=== PATIENT | male | born 1950 | race Caucasian/White ===

== ENCOUNTER 2024-11-22 13:09 | Inpatient (IN) | payer MEDICARE, OTHER, SELFPAY ==
[2024-11-22] VITALS (10 sets, daily range): BP systolic 94–149; BP diastolic 50–76
[2024-11-22 10:16] LABS: Glucose - Point of Care 126 mg/dl (70-99)
[2024-11-22 10:40] LABS: % Basophils 0.2 % (0-2); % Eosinophils 0.6 % (0-6); % Immature Granulocytes 0.6 % (0-0.5); % Lymphocytes 8.7 % (20.5-51.1); % Monocytes 8.9 % (1.7-9.3); ALT (SGPT) 29 U/L (0-50); AST (SGOT) 31 U/L (17-59); Absolute Lymphocytes 0.4 10^3/uL (1.2-3.4); Absolute Monocytes 0.4 10^3/uL (0.1-0.6); Albumin 4.3 g/dl (3.5-5.0); Alkaline Phosphatase 76 U/L (38-126); Blood Urea Nitrogen 24 mg/dl (9-20); Calcium 8.8 mg/dl (8.4-10.2); Carbon Dioxide 23 mmol/L (22-30); Chloride 99 mmol/L (98-107); Glucose 135 mg/dl (70-99); Hematocrit 39.5 % (39.0-52.0); Hemoglobin 13.5 g/dL (13.0-18.0); Mean Corp Hgb Conc. 34.2 g/dL (33.0-37.0); Mean Corpuscular Hgb 29.7 pg (27.0-31.0); Mean Corpuscular Volume 86.8 fL (80.0-94.0); Mean Platelet Volume 10.4 fL (7.4-10.4); Nucleated Red Blood Cells % 0 % (-); Platelet Count 119 10^3/uL (130-400); Potassium 3.8 mmol/L (3.5-5.1); Red Blood Cell Count 4.55 10^6/uL (4.70-6.10); Red Cell Dist. Width 12.8 % (11.5-14.5); Sodium 135 mmol/L (135-145); Total Bilirubin 0.5 mg/dl (0.2-1.3); Total Protein 7.2 g/dl (6.3-8.2); White Blood Cell Count 4.9 10^3/uL (4.8-10.8); eGFR 36.79
[2024-11-22 10:41] LABS: Lactic Acid 1.6 mmol/L (0.7-2.0)
[2024-11-22 10:46] LABS: COVID-19 Antigen Negative (Negative)
--- NOTE | 2024-11-22 10:48 | ED.GENMED ---
History of Present Illness
General
Chief Complaint: Change in Mental Status
Source: patient and family
Time Seen by Provider: 11/22/24 10:36
History of Present Illness
History of Present Illness:
This patient is a 74-year-old male presents emergency department accompanied by his and [id number]. They report that the patient was perfectly fine up until last night. In fact, he drove to dinner, ate dinner as usual, and was acting his
normal self. They do note that he had a cough yesterday but otherwise no symptoms. However, throughout the night, his reports that he seemed confused and was shuffling around and up all night. She describes him as walking hunched over, and
restless. Today, he was doing strange things and did not seem to understand what they were saying to him. For example, he urinated in the trash can in the kitchen and did not seem to realize that this was inappropriate. Just before medics arrival
patient did develop nausea and diaphoresis which is now resolved. He did complain to his of left-sided chest comfort earlier this morning now resolved.
Of note, patient does not have a history of a shunt. He does have a history of brain tumors, some of which have been surgically removed, others for which she has received radiation. She states that there is one present on the left side but it is
decreasing in size. He is due for his 3-month follow-up MRI early in November.
Past History
Past History
ED Past Medical History: HTN, Hypercholesterolemia, NIDDM and Other (Brain tumors)
ED Past Surgical History: Orthopedic and Other (Brain tumor removal)
Social History
Tobacco: Non-smoker
Alcohol: None
Drug: None
Personal:
Living: with family
Phy Exam
Physical Exam
Physical Exam:
GENERAL: Alert , in no apparent distress
EYE: pupils equal and reactive, no photophobia, no nystagmus, EOMI
NECK: Supple, no significant adenopathy, [place] no easily.
ENT: o/p clr, mmm.
CARDIAC: Regular rate and rhythm .
LUNGS: Clear breath sounds bilaterally, no acute respiratory distress, no wheezes/rales/rhonchi
ABDOMEN: Soft, without focal tenderness, no r/g, no cvat
NEUROLOGICAL: Alert and oriented to person and place but not time, no focal neuro deficits, motor 5 out of 5, sensory intact, [id number] normal, cranial nerves II through XII intact
SKIN: Warm and dry, skin intact.
MUSCULOSKELETAL: No edema, well perfused.
PSYCH: Normal and appropriate interaction although somewhat forgetful.
Course
Orders/Labs/Results
Orders:
Orders
11/22/24 10:07
Electrocardiogram (*1) Urgent
Reason for Study: Fatigue / Weakness
CT Head W/o Iv Contrast Urgent
Comment:
Reason For Exam: confusion
EKG- Treatment ONCE
CR Chest - 2 Views Urgent
Comment:
Reason For Exam: cough
11/22/24 10:14
COVID-19 Antigen Urgent
Source: Nasal Swab
Complete Blood Count/With Diff Urgent
Comprehensive Metabolic Panel Urgent
Lactic Acid Urgent
Influenza A+B Rapid Molecular Urgent
LOKESH Source: Nasal Swab
Specimen Description:
11/22/24 11:07
Troponin I Urgent
11/22/24 11:18
Oseltamivir Phosphate [Tamiflu] 75 mg PO NOW STA
11/22/24 11:56
0.9% Sodium Chloride 500 ml [Nss] 500 ml IV BOLUS
11/22/24 12:09
Azithromycin 500 mg/250 ml [Zithromax Infusion] 500 mg in 250 ml IV NOW
CefTRIAXone [Rocephin] 1,000 mg IV NOW STA
Vancomycin [Vancocin] 2,000 mg 0.9% Sodium Chloride 500 ml [Nss] 500 ml IV NOW
11/22/24 12:29
Urinalysis Urgent
Date Specimen was Collected: 11/22/24
Time Specimen was Collected: 12:28
Urine Microscopic Urgent
Date Specimen was Collected: 11/22/24
Time Specimen was Collected: 12:28
11/22/24 12:41
Admit/Transfer Patient As Directed
Co-Sign Provider:
Level of Care: Inpatient admission
Assign to:: Telemetry
Physician / Group: susan nelson
Diagnosis: confusion 2/2 influenza A, yen on ckd
Reason for Telemetry: Arrhythmia
Date to Stop Telemetry: 11/25/24
Time to Stop Telemetry: 11:00
Reason for Hospitalization: confusion 2/2 influenza A, yen on ckd
Expected length of stay greater than two midnights?: Yes
ELOS- Estimated Length of Stay in days: 4
I certify the patient meets the requirements for IP care: Yes
11/22/24 12:42
Code Status As Directed
Resuscitation Status: Do not resuscitate
Reached after discussion with pt or family/Healthcare POA: Yes
Based on pt advanced directive or healthcare POA form: Yes
Decision communicated with: per pt with angelica
DNR Bracelet Application ONCE
11/22/24 12:47
PRN Pain Medication Management As Directed
May give lesser potent ordered pain med per pt: Yes
preference::
Protocol:: Medication orders for pain may be administered in a
manner that supports deferring to patient preference
when the pt is:
- Requesting an ordered lesser potent pain medication.
Least to most potent pain medications are defined
as: acetaminophen < NSAID < tramadol < opioids
(morphine, oxycodone, hydromorphone).
- Requesting a lesser dose of the same medication IF
ORDERED.
- Requesting a less intrusive route of administration
if both routes are prescribed by the provider (PO <
IV).
11/22/24 12:48
Acetaminophen [Tylenol] 1,000 mg PO NOW STA
11/25/24 11:00
DC Protocol for Telemetry ONCE
Abnormal Lab Results
11/22/24 11/22/24 11/22/24
10:13 10:14 12:29
RBC 4.55 L 10^6/uL
(4.70-6.10)
Plt Count 119 L 10^3/uL
(130-400)
Absolute Lymphs (auto) 0.4 L 10^3/uL
(1.2-3.4)
Immature Gran % 0.6 H %
(0-0.5)
Neutrophils % 81.0 H %
(42.2-75.2)
Lymphocytes % 8.7 L %
(20.5-51.1)
BUN 24 H mg/dl
(9-20)
Creatinine 1.9 H mg/dL
(0.7-1.3)
Glucose 135 H mg/dl
(70-99)
Urine Ketones 1+ A
(Negative)
Urine Occult Blood 1+ A
(Negative)
Urine RBC 3-6 A /HPF
(0-2)
POC Glucose 126 H mg/dl
(70-99)
11/22/24 10:14
11/22/24 10:14
Vital Signs
Initial and Last Documented VS:
Initial Vital Signs
Temp Pulse Resp BP Pulse Ox
98.6 F 91 19 94/60 95
11/22/24 10:00 11/22/24 10:00 11/22/24 10:00 11/22/24 10:00 11/22/24 10:00
Last Documented Vital Signs
Temp Pulse Resp BP Pulse Ox
101.9 F H 89 25 135/69 91
11/22/24 12:41 11/22/24 12:15 11/22/24 11:00 11/22/24 11:00 11/22/24 11:00
*Critical Care Note
Total Time (30-74mins, 75-104mins- exclusive of procedures): Not Applicable
Update Note
Update Note:
Patient presents to the Emergency Department with mental status change
Number and Complexity of Problems Addressed at the Encounter
� Chronic conditions affecting care:hx brain tumors
� Acute Exacerbation and/or Progression of Chronic Illness:
� Differential Diagnosis includes: But not limited to intracranial mass, intracranial bleed, meningitis/encephalitis, sepsis, etc. etc.
Amount and/or Complexity of Data to be Reviewed and Analyzed
� I performed an independent evaluation of and my interpretation is:
EKG:read by me, nsr, no specific acute ischemic changes noted
CT:1). No acute intracranial abnormalities.
2).There is moderate diffuse cortical atrophy with a 4 cm focal area of volume loss in the left occipital lobe consistent subjacent to left occipital craniotomy and consistent with prior surgical intervention.
Xrays: Read by me suspect left lower lobe infiltrate
Laboratory Studies: Influenza A positive, nl wbc with sl l shift, YEN
Other:
� Review of other/old records reveals: Discharge summary from April 2021 reviewed patient admitted with lumbar radiculopathy
� Clinical information was obtained by an independent historian: and [id number] who are at bedside
� Prescriptions/Medications Considered but not given:
� Further testing considered but not performed:
Risk of Complications and/or Morbidity or Mortality of Patient Management
� Social determinants of health affecting care:
� Discussion with other providers (PCP, Hospitalists, Consultants, etc):
� Escalation of care including admission/observation vs risk of discharge considered: 12:12 PM patient and family updated, findings represent influenza and suspected left lower pneumonia. UA is pending. Lactic acid, blood
pressure, heart rate stable. [place] text sent to hospitalist for admission, antibiotics and Tamiflu ordered.
ED Attending Note
-
Portions of this chart may have been created with voice recognition software.� Occasional wrong word or��sound alike� substitutions may have occurred due to the inherent limitations of voice recognition software.
Discharge Plan
Departure
Patient Disposition: Admit
Date of Disposition: 11/22/24
Time of Disposition: 12:41
Admit to: Telemetry
Presentation/result/management discussed w/ accepting MD/DO: Hospitalist
Discharge Problem:
Influenza A, Acute alteration in mental status
Interventions
Interventions:
*Risk Screen - Suicide Last Done: 11/22/24 11:09
*General Assessment Last Done: 11/22/24 11:06
*Neglect/Abuse Screening Last Done: 11/22/24 11:06
*ED COVID-19 Vaccine History Last Done: 11/22/24 11:06
ED- Neurological Assessment Last Done: 11/22/24 11:11
ED Swallowing Screen Last Done: 11/22/24 11:45
[2024-11-22] MEDS: TAMIFLU 75 MG PO (11:37)
[2024-11-22 11:51] LABS: Troponin I 0.013 ng/ml
[2024-11-22] MEDS: NSS 500 IV (11:59)
--- NOTE | 2024-11-22 12:20 | HPS.HSE ---
Family Physician
-
Family Physician: Car Mendez
Chief Complaint
-
Confusion, cough
History of Present Illness
74-year-old male in the ER with his and [id number]. They report patient was his normal self yesterday however they did notice a cough. Throughout the night his states he seemed to be confused with moving around and up all night long
hunched over and restless. She reports he urinated in the trash can in the kitchen this a.m. which is not something he would normally do. Before EMS arrived today he developed nausea with diaphoresis and right-sided chest discomfort which is
resolved. Patient reports right-sided chest pain secondary to cough. He also has nasal congestion on exam with some confusion could not recall the year knows he is at [facility] does recognize his . He has no other neurological deficits
except a chronic left hand tremor and right lower jaw tremor. 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 1 brain tumor present on the
left side reportedly decreasing in size. He is due for MRI in November., HTN, HLD, DM2,Prostate cancer with radiation therapy> 20 years ago, neuropathy bilateral legs
Medical History
Past Medical History
Past Medical History: Reports Other
Additional Past Medical History:
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
1 residual left-sided brain tumor currently present is being monitored with MRI through Dr. Vincenzo Garcia [facility]
HTN
HLD
DM2
Prostate cancer with radiation therapy> 20 years ago
neuropathy bilateral legs
Obesity
Past Surgical History: Reports Other
Additional Past Surgical History:
Hemangioblastoma with surgical resection multiple tumors 2014
Cataract extraction
Lumbar discectomy
Social History
Tobacco: Former Smoker ( reports many years ago)
Alcohol: None
Drug: None
Personal:
Living: With Family ( Mamadou)
Employment: Retired
Family History
Family History: Other (Mother history of colon cancer age 66 father age 90 old age 1 brother age 61 PR)
Allergies / Home Medications
Allergies reflects when Allergies were last updated in [facility].
Home Medications with original date entered in [facility]
Allergy/Medication List:
Allergies
Allergy/AdvReac Type Severity Reaction Status Date / Time
No Known Allergies Allergy Verified 11/22/24 10:07
Home Medications
omeprazole 40 mg capsule,delayed release 40 mg PO DAILY Gastrointestinal issue 05/10/21
tamsulosin 0.4 mg capsule 1 tab PO DAILY 07/08/21
metformin 500 mg tablet,extended release 24 hr 1,000 mg PO DAILY 11/22/24
rosuvastatin 5 mg tablet (Crestor) 5 mg PO DAILY 11/22/24
valsartan 320 mg-hydrochlorothiazide 12.5 mg tablet 1 tab PO DAILY 11/22/24
Review of Systems
-
History Source: Patient and Family (Mamadou )
A 12 point ROS was completed and negative except as noted: Yes
Constitutional: Reports Fever and Fatigue; Denies Chills
EENT: Reports Other (Nasal congestion); Denies Sore Throat
Respiratory: Reports Cough; Denies Trouble Breathing
Cardiac: Denies Chest Pain, Diaphoresis, Palpitations or Syncope
Abdomen/GI: Denies Abdominal Pain, Nausea, Vomiting, Diarrhea or Constipated
: Denies Dysuria, Frequency, Flank Pain, Incontinence or Difficulty Voiding
Musculoskeletal: Denies Joint Pain or Edema
Skin: Denies Itching or Rash
Neurological: Reports Weakness (Generalized); Denies Dizzy or Headache
Endocrine: Reports No Symptoms
Hematologic/Lymphatic: Reports No Symptoms
Psych: Reports Calm
Physical Exam
Vital Signs
Vital Signs
Temp Pulse Resp BP Pulse Ox
99.9 F 89 25 135/69 91
11/22/24 11:10 11/22/24 12:15 11/22/24 11:00 11/22/24 11:00 11/22/24 11:00
Physical Exam
General: Comfortable, Conversant, Fever and Obese; No Chills
HEENT: NormoCephalic, Anicteric, Moist mucous membranes, PERRLA and Other (Chronic lower jaw tremors)
Respiratory: Clear; No Wheezes, Rales or Rhonchi
Cardiac: S1/S2 and Regular Rhythm; No Murmur, Rub, Gallop or Peripheral Edema
Breast: Deferred by me
GI: Soft, Non Tender, Non Distended and Normal Bowel Sounds
Rectal: Deferred by Provider
Genito-urinary: Deferred by me
Musculoskeletal: No Clubbing, No Cyanosis and No Edema
Skin: Warm and Dry; No Rash
Neuro: Awake, Alert, Oriented (To name, place is confused to year), No Motor Deficits, Cranial Nerves Intact, Tremors (Chronic to left hand and lower jaw) and Other ([place] BAND); No Slurred Speech or Facial Droop
Psych: Calm
Laboratory Results
-
11/22/24 10:14
11/22/24 10:14
Laboratory Results
Lactic Acid 1.6 mmol/L (0.7-2.0) 11/22/24 10:14
Total Bilirubin 0.5 mg/dl (0.2-1.3) 11/22/24 10:14
AST 31 U/L (17-59) 11/22/24 10:14
ALT 29 U/L (0-50) 11/22/24 10:14
Alkaline Phosphatase 76 U/L (38-126) 11/22/24 10:14
Troponin I 0.013 ng/ml 11/22/24 11:07
Impression/Plan
-
Impression/Plan:
Admit to telemetry
#Acute hypoxic respiratory insufficiency secondary to INFLUENZA A positive
# Acute confusion secondary to fever/influenza A
Temp 99.9 F, HR 89, 135/69
101.8F temp
91% RA
-IV NSS
-Continue Tamiflu 30 mg twice daily x 5 days reduced dose secondary CKD 3
-Tylenol as needed fever
CXR: Left lower lobe PNA
CT head:
1. No acute intracranial abnormalities.
2.There is moderate diffuse cortical atrophy with a 4 cm focal area of volume loss in the left occipital lobe consistent subjacent to left occipital craniotomy and consistent
with prior surgical intervention.
#EYN on CKD 3B
1.9�prior baseline 1.5
#Hemangioblastoma Dx 2014
#Surgical resection multiple tumors with plate placed
#Radiation 2014 and now last April 2024 still with 1 left-sided brain tumor that is being monitored with MRIs by Dr. Vincenzo Garcia at [facility]
#DM 2
-Hold metformin
-Accu-Cheks with SSI low
#Neuropathy legs
-Continue gabapentin 600 mg 3 times daily hold for sedation
#GERD
-Continue omeprazole daily
#BPH
#Prostate cancer with radiation therapy> 20 years ago
-Continue Flomax daily
#Chronic benign tremors to left arm and lower jaw
#HLD
-Continue statin
DVT prophylaxis
Subcu heparin
DNR per patient and Mamadou at bedside
[2024-11-22] MEDS: ROCEPHIN 1000 MG IV (12:21)
[2024-11-22 12:43] LABS: Urine Albumin Trace (Neg - Trace); Urine Bilirubin Negative (Negative); Urine Character Clear (Clear); Urine Color Yellow; Urine Glucose Negative (Negative); Urine Ketone 1+ (Negative); Urine Leukocyte Negative (Negative); Urine Nitrite Negative (Negative); Urine Occult Blood 1+ (Negative); Urine Urobilinogen Negative (Neg - 1+)
[2024-11-22 12:53] LABS: Urine Mucus Many; Urine Squamous Cell 0-2 /LPF (Few)
[2024-11-22 12:54] LABS: Urine Amorphous Seen
[2024-11-22 12:56] LABS: Urine White Cell 0-2 /HPF (0-5)
--- NOTE | 2024-11-22 13:07 | W.PN.UPDATE ---
Update Note
Progress Note Update
This is an addendum to the H&P written by Melany Carbone on 11/22/2024.� Patient seen and examined independently with PROCESSING SUPERVISOR.
74-year-old male past medical history of hemangioblastoma�status post occipital craniotomy/radiation with titanium plate, hypertension, hypercholesteremia, diabetes, CKD, presenting with altered mental status.� Cough since yesterday and confusion
all night and acting strange such as urinating in the trash.� Also nausea and diaphoresis, left-sided chest discomfort with cough now resolved.
Labs show creatinine of 1.9 with baseline around 1.5.� Other labs unremarkable.� CT head shows no acute intracranial normalities.� Moderate diffuse cortical atrophy with 4 similar focal area of volume loss in left supra lobe adjacent occipital
craniotomy.
Chest x-ray shows left lower lobe infiltrate although report pending.� Patient positive for influenza A.
Patient given Tamiflu and IV fluids, IV antibiotics.� Continue Tamiflu, hold further antibiotics.� No focal neurological neurological deficits to warrant MRI brain at this time is already scheduled for early November.
[2024-11-22] MEDS: TYLENOL 1000 MG PO (13:08)
--- NOTE | 2024-11-22 17:08 | PTCARENOTE ---
Received pt from ED, pt ambulated to bed from stretcher with minimal assistance and no assistive devices, pt AAOx2 (confused to time), bed alarm in place, NSR on tele, resting comfortabloy in bed with at bedside and call samson within reach.
[2024-11-22 17:18] LABS: Glucose - Point of Care 97 mg/dl (70-99)
--- NOTE | 2024-11-22 18:33 | VATNOTE ---
Attempts to restart PHS IV unsuccessful, another VAT nurse to attempt.
[2024-11-22] MEDS: HEPARIN 5000 UNITS SC (20:13)
[2024-11-22] MEDS: NSS 1000 IV (20:13)
[2024-11-22] MEDS: MUCINEX 600 MG PO (20:13)
[2024-11-22 21:52] LABS: Glucose - Point of Care 93 mg/dl (70-99)
[2024-11-22] MEDS: TAMIFLU 30 MG PO (21:54)
[2024-11-23 02:59] LABS: Glucose - Point of Care 93 mg/dl (70-99)
[2024-11-23 03:18] VITALS: BP 124/59
[2024-11-23 05:40] VITALS: BMI 30.6
[2024-11-23 07:15] VITALS: BP 128/70
[2024-11-23 07:15] LABS: Glucose - Point of Care 75 mg/dl (70-99)
[2024-11-23] MEDS: NSS 1000 IV (07:38)
[2024-11-23] MEDS: MUCINEX 600 MG PO (07:39)
[2024-11-23] MEDS: TAMIFLU 30 MG PO (07:39)
[2024-11-23] MEDS: HEPARIN 5000 UNITS SC (07:39)
[2024-11-23] MEDS: CRESTOR 5 MG PO (07:39)
[2024-11-23] MEDS: FLOMAX 0.4 MG PO (07:39)
[2024-11-23] MEDS: PROTONIX 40 MG PO (07:39)
[2024-11-23 07:55] LABS: % Eosinophils 1.3 % (0-6); % Immature Granulocytes 0.3 % (0-0.5); % Lymphocytes 23.3 % (20.5-51.1); % Monocytes 11.9 % (1.7-9.3); % Neutrophils 63.2 % (42.2-75.2); Absolute Eosinophils 0.1 10^3/uL (0-0.7); Absolute Lymphocytes 0.9 10^3/uL (1.2-3.4); Absolute Monocytes 0.5 10^3/uL (0.1-0.6); Absolute Neutrophils 2.4 10^3/uL (1.4-6.5); Hematocrit 42.8 % (39.0-52.0); Hemoglobin 14.2 g/dL (13.0-18.0); Mean Corp Hgb Conc. 33.2 g/dL (33.0-37.0); Mean Corpuscular Volume 87.5 fL (80.0-94.0); Mean Platelet Volume 10.7 fL (7.4-10.4); Nucleated Red Blood Cells % 0 % (-); Platelet Count 121 10^3/uL (130-400); Red Blood Cell Count 4.89 10^6/uL (4.70-6.10); Red Cell Dist. Width 13.1 % (11.5-14.5); White Blood Cell Count 3.8 10^3/uL (4.8-10.8)
[2024-11-23 08:37] LABS: ALT (SGPT) 35 U/L (0-50); AST (SGOT) 45 U/L (17-59); Albumin 4.2 g/dl (3.5-5.0); Alkaline Phosphatase 73 U/L (38-126); Blood Urea Nitrogen 23 mg/dl (9-20); Calcium 8.9 mg/dl (8.4-10.2); Carbon Dioxide 25 mmol/L (22-30); Chloride 100 mmol/L (98-107); Estimated Creatinine Clearance 36 ml/min; Glucose 95 mg/dl (70-99); Potassium 3.9 mmol/L (3.5-5.1); Sodium 136 mmol/L (135-145); Total Bilirubin 0.4 mg/dl (0.2-1.3); Total Protein 7.1 g/dl (6.3-8.2); eGFR 39.25
[2024-11-23 08:54] LABS: Glycohemoglobin (HgbA1c) 6.6 % (4.0-5.6)
[2024-11-23 11:15] VITALS: BP 133/80
--- NOTE | 2024-11-23 11:28 | W.PN.HOSP.TC ---
Today's Communication/Plan
-
DC home
More than 30 minutes spent in discharge including
Final examination of the patient
Summarizing hospital stay
Instructions for continuing care to all relevant caregivers
Preparation of discharge records, prescriptions, and referral forms
Total time spent (in minutes): 33mins
Assessment / Plan
Assessment / Plan
Toxic encephalopathy secondary to influenza A. Now resolved
Influenza A
-Tamiflu x 5 days
Hypertension
-Normotensive while in the hospital. Home valsartan hydrochlorothiazide held.
-Will continue to hold recommend blood pressure log twice a day, if greater than 140 can resume
-Additionally, should follow-up with nephrology and PCP for repeat renal function especially as on valsartan hydrochlorothiazide in the setting of CKD stage IIIb
-- As creatinine clearance is not less than 30 can still continue valsartan hydrochlorothiazide at this time
--- Additionally valsartan is renal protective in the setting of diabetes, UA with trace albumin
CKD stage IIIb
-Monitor urinary output
-Avoid nephrotoxins hypotension
-Follow-up with nephrology as outpatient
-Repeat BMP within 1 week
Type 2 diabetes, controlled
-Continue metformin
-If renal function continues to worsen may need to change agents in the near future.
-PCP should follow this.
Anticipated Discharge: Today
Subjective/Interval History
-
Date of Service: November 23, 2024
Seen and examined. Feeling much better. No evidence of confusion. Knows where he is who he is able to tell me exactly what happened after discussing with his last night.
Objective Data
-
Labs:
Laboratory Results
11/23/24
07:38
WBC 3.8 L
Hgb 14.2
Hct 42.8
Plt Count 121 L
Sodium 136
Potassium 3.9
Chloride 100
Carbon Dioxide 25
BUN 23 H
Creatinine 1.8 H
Glucose 95
Calcium 8.9
Total Bilirubin 0.4
AST 45
ALT 35
Alkaline Phosphatase 73
Vital Signs:
Vital Signs
Temp Pulse Resp BP Pulse Ox
98.8 F 82 16 128/70 93
11/23/24 07:15 11/23/24 07:15 11/23/24 07:15 11/23/24 07:15 11/23/24 10:23
I&O
11/22/24 11/23/24 11/24/24
06:59 06:59 06:59
Intake Total 560 / 560
Balance 560 / 560
Physical Exam
-
General: Well Developed and Well Nourished
HEENT: Normocephalic and Atraumatic
Respiratory: Clear to Auscultation
Cardiac: Regular Rhythm and S1/S2
GI: Soft, Nontender, Nondistended and Normal Bowel Sounds
Skin: Warm and Dry
Neuro: Awake, Alert, Oriented and AO x 3
--- NOTE | 2024-11-23 11:34 | W.DCSUMMARY ---
Discharge Summary
Discharge Data
Date of Admission: 11/22/24
Date of Discharge: 11/23/24
-
Pending Results: No
Hospital Course
74 male history of hemangioblastoma of surgically resected, brain tumor present on left side reported as decreasing size, hypertension hyperlipidemia type 2 diabetes prostate cancer s/p radiation therapy more than 20 years ago, neuropathy
Presented with worsening confusion that was progressively getting worse throughout the day. In the ED's head CT completed with no acute intracranial abnormalities. But was found to have a SpO2 of 91%. COVID was negative. However positive for flu
A. Started on Tamiflu. Also noted to have a potential bump in renal function with a creatinine of 1.9. Started on IV fluids. At the time of my evaluation without evidence of respiratory distress confusion resolved therefore will discharge home
to complete Tamiflu x 5 days. Outpatient PCP follow-up.
Additionally, discharge creatinine 1.8. Will need outpatient follow-up with nephrology.
-Repeat renal function testing with PCP within 1 week
Blood pressure medications (Valsartan/HCTZ) has been held as blood pressure was within normal parameters and due to renal function. Therefore, keep a bp log, take blood pressure twice a day, record, if >140, can resume taking home blood pressure
medication as prescribed previously and call family medical provider.
Head CT
IMPRESSION:
1). No acute intracranial abnormalities.
2).There is moderate diffuse cortical atrophy with a 4 cm focal area of volume loss in the left occipital lobe consistent subjacent to left occipital craniotomy and consistent with prior surgical intervention.
Discharge Plan
-
Patient Disposition: Home (Routine Discharge)
Discharge Diagnosis/Procedures: Flu A
Condition: Good
Diet: As tolerated and Diabetic, Carb Controlled
Activity: As tolerated
Activity Restrictions/Additional Instructions:
Presented with worsening confusion that was progressively getting worse throughout the day. In the ED's head CT completed with no acute intracranial abnormalities. But was found to have a SpO2 of 91%. COVID was negative. However positive for flu
A. Started on Tamiflu. Also noted to have a potential bump in renal function with a creatinine of 1.9. Started on IV fluids. At the time of my evaluation without evidence of respiratory distress confusion resolved therefore will discharge home
to complete Tamiflu x 5 days. Outpatient PCP follow-up.
Additionally, discharge creatinine 1.8. Will need outpatient follow-up with nephrology.
-Repeat renal function testing with PCP within 1 week
Blood pressure medications (Valsartan/HCTZ) has been held as blood pressure was within normal parameters and due to renal function. Therefore, keep a bp log, take blood pressure twice a day, record, if >140, can resume taking home blood pressure
medication as prescribed previously and call family medical provider.
Head CT
IMPRESSION:
1). No acute intracranial abnormalities.
2).There is moderate diffuse cortical atrophy with a 4 cm focal area of volume loss in the left occipital lobe consistent subjacent to left occipital craniotomy and consistent with prior surgical intervention.
Instructions: Chronic kidney disease, Flu in adults - Discharge instructions
Referrals:
Car Mendez MD [Family Provider] -
Additional Discharge Medication Instructions: Blood pressure medications (Valsartan/HCTZ) has been held as blood pressure was within normal parameters and due to renal function. Therefore, keep a bp log, take blood pressure twice a day, record, if
>140, can resume taking home blood pressure medication as prescribed previously and call family medical provider.
Prescriptions:
New
oseltamivir 30 mg Capsule
30 mg PO BID Qty: 8 0RF
guaifenesin 600 mg Tablet Extended Release 12hr
600 mg PO Q12 Qty: 8 0RF
Continued
omeprazole 40 MG capsule,delayed release(DR/EC)
40 mg PO DAILY
tamsulosin 0.4 MG capsule
0.4 mg PO DAILY
rosuvastatin [Crestor] 5 mg Tablet
5 mg PO DAILY
metformin 500 mg Tablet Extended Release 24 Hr
1,000 mg PO DAILY
valsartan-hydrochlorothiazide 320-12.5 mg Tablet
1 tab PO DAILY
Discharge Orders:
Discharge Patient (As Directed); Ordered 11/23/24
Ordered By: Alejandro Dunaway
Discharge Date and Time
Print Language: SERBIAN
--- NOTE | 2024-11-23 13:41 | CM ---
Patient seen at bedside with . Patient states he is going home with no needs. IMM completed and signed form placed on chart. Patient states that they live in a [address] Mendez as his PCP and [facility] [place] is his pharmacy. CM will
continue to follow for discharge planning needs.
Plan; home with no needs anticipated at this time
== END 2024-11-23 13:55 | disposition home or self-care (01) | DRG 193 ==
LOC: 2 NORTH 13:09
PROVIDERS: Clinical Nurse Specialist Family Health; ADMITTING PHYSICIAN Hospitalist; ATTENDING PHYSICIAN Hospitalist; EMERGENCY PHYSICIAN Emergency Medicine; FAMILY PHYSICIAN Family Medicine
DX: J10.1 Influenza due to other identified influenza virus with other respiratory manifestations (principal); G92.8 Other toxic encephalopathy; N17.9 Acute kidney failure, unspecified; N18.30 Chronic kidney disease, stage 3 unspecified; Z79.84 Long term (current) use of oral hypoglycemic drugs; Z85.46 Personal history of malignant neoplasm of prostate; G57.93 Unspecified mononeuropathy of bilateral lower limbs; E11.41 Type 2 diabetes mellitus with diabetic mononeuropathy; Z92.3 Personal history of irradiation; D49.6 Neoplasm of unspecified behavior of brain; I12.9 Hypertensive chronic kidney disease with stage 1 through stage 4 chronic kidney disease, or unspecified chronic kidney disease; E66.9 Obesity, unspecified; E11.22 Type 2 diabetes mellitus with diabetic chronic kidney disease; N18.9 Chronic kidney disease, unspecified; Z87.891 Personal history of nicotine dependence; E78.00 Pure hypercholesterolemia, unspecified; R09.02 Hypoxemia; Z66 Do not resuscitate
CPT/HCPCS: 70450; 71046; 80053; 81003; 81015; 82962; 83036; 83605; 84484; 85025; 87502; 87811; 93005; 96361; 96374; 96375; 99285

== ENCOUNTER → 2025-10-06 15:25 | Outpatient (REF) | payer MEDICARE, OTHER, SELFPAY | LOC: HWRAD 15:25 | PROVIDERS: ATTENDING PHYSICIAN Podiatrist Foot & Ankle Surgery; FAMILY PHYSICIAN Family Medicine | DX: M19.071 Primary osteoarthritis, right ankle and foot (principal); M19.072 Primary osteoarthritis, left ankle and foot | CPT/HCPCS: 73630 ==